=== PATIENT | female | born 1990 | race Caucasian/White ===

== ENCOUNTER 2022-11-30 04:52 | Emergency (ER) | payer SELFPAY ==
[~2022-11-30] VITALS: Ht 165.1 cm; Wt 60.0 kg
[2022-11-30 05:00] VITALS: TEMP 97; O2SAT 100
[2022-11-30 08:27] LABS: BASOPHILS % 0.3 % (0.0-2.0); EOSINOPHILS % 0.1 % (0.0-5.0); HEMATOCRIT. 43.4 % (36.0-48.0); HEMOGLOBIN. 14.7 g/dL (12.0-16.0); LYMPHOCYTES % 20.6 % (20.0-50.0); MEAN CORPUSCULAR HGB CONC 33.9 g/dL (31.0-37.0); MEAN CORPUSCULAR VOLUME 85.5 fL (81.0-99.0); MEAN PLATELET VOLUME 7.9 fl (7.4-10.4); MONOCYTES % 8.8 % (2.0-8.0); NEUTROPHILS % 70.2 % (40.0-76.0); PLATELET 352 x1000/uL (130-400); RED BLOOD CELL COUNT 5.08 mill/uL (4.2-5.4); RED CELL DISTRIBUTION WIDTH 15.8 % (11.6-14.6); WHITE BLOOD COUNT 10.3 x1000/uL (4.5-11.0)
[2022-11-30 08:48] LABS: CALCIUM 8.9 mg/dL (8.5-10.1); CARBON DIOXIDE 16 mEq/L (21-32); CHLORIDE 107 mEq/L (98-107); INDEX HEMOLYSI 2 (1-3); INDEX ICTERIC 1 (1-4); INDEX LIPEMIC 1 (1-3); POTASSIUM 4.5 mEq/L (3.5-5.1); SODIUM 133 mEq/L (136-145); UREA NITROGEN BLOOD 53 mg/dL (7-21)
[2022-11-30 08:54] LABS: ACETAMINOPHEN <2 ug/mL ug/mL (10-30); CREATININE 1.4 mg/dL (0.6-1.3); ETHANOL BLOOD < 10 mg/dL (-10); GLUCOSE 93 mg/dL (70-105)
[2022-11-30] MEDS ORDERED: LORAZEPAM 2MG/ML CPJ IM PRN (09:30)
[2022-11-30] MEDS ORDERED: ZIPRASIDONE MESYLATE 20MG/VIAL IM ONE (09:30)
[2022-11-30 15:37] VITALS: BP 125/81; PULSE 96; RESP 16
== END 2022-11-30 15:38 | disposition home or self-care (01) ==
LOC: EDSEX 04:56 → ER 04:56 → EDBD 04:56 → ER 15:38
DX: R45.1 Restlessness and agitation (principal); R45.6 Violent behavior
CPT/HCPCS: 80048; 80307; 80329; 80320; 85025; 36415; 93005; 96372; 99285; J2060; J3486; Z7610 ×2; G0480